=== PATIENT | male | born 1995 | race American Indian/Alaskan Native ===

== ENCOUNTER 2021-01-31 10:52 | Emergency (ER) | payer BC ==
--- NOTE | 2021-01-31 11:44 | Emergency Department Report ---
<MARY DOWNS - Last Filed: 01/31/21 16:28> ED General Adult HPI - General Chief complaint: Extremity Problem,Nontraumatic Stated complaint: SWELLING TO LT LEG Time Seen by Provider: 01/31/21 11:41 Source: patient Mode of arrival: Ambulatory Limitations: No Limitations - History of Present Illness Initial comments: 25-year-old -[place] male patient presents with complaints of left knee pain and swelling x2 days. He denies any recent injuries, but states 3 weeks ago he did fall on his knees causing abrasions that are still healing. Patient denies any difficulty moving his leg, fever/chills/sweats, loss of sensation in his leg, or weakness. He reports the pain occurs only with ambulation and weightbearing and states it is mild and rates it as a 5/10 in severity. Patient has history of type 1 diabetes and states he compliant with his insulin. Patient also denies any dysuria/hematuria/urinary frequency, penile discharge/scrotal swelling/pain - Related Data Previous Rx's Medication Instructions Recorded Last Taken Type Doxycycline Monohydrate 100 mg PO BID 14 Days #28 capsule 01/31/21 Unknown Rx [Doxycycline Monohydrate CAP] Naproxen 500 mg PO BID #20 tablet 01/31/21 Unknown Rx Allergies Allergy/AdvReac Type Severity Reaction Status Date / Time No Known Allergies Allergy Unverified 01/31/21 16:58 ED Review of Systems Constitutional: denies: chills, diaphoresis, fever, malaise, weakness Gastrointestinal: denies: abdominal pain Musculoskeletal: joint swelling, arthralgia Skin: as per HPI, change in color Neurological: denies: numbness, paresthesias ED Past Medical Hx - Past Medical History Previous Medical History?: Yes Hx Diabetes: Yes (insulin dependent) - Surgical History Past Surgical History?: No - Social History Smoking Status: Never Smoker Substance Use Type: Marijuana - Medications Home Medications: Home Medications Medication Instructions Recorded Confirmed Last Taken Type Doxycycline Monohydrate 100 mg PO BID 14 Days #28 capsule 01/31/21 Unknown Rx [Doxycycline Monohydrate CAP] Naproxen 500 mg PO BID #20 tablet 01/31/21 Unknown Rx ED Physical Exam - General Limitations: No Limitations General appearance: alert, in no apparent distress - Head Head exam: Present: atraumatic, normocephalic - Eye Eye exam: Present: normal appearance. Absent: scleral icterus - Respiratory Respiratory exam: Present: normal lung sounds bilaterally. Absent: respiratory distress - Cardiovascular Cardiovascular Exam: Present: regular rate, normal rhythm - Expanded Lower Extremity Exam Left Knee exam: Present: full ROM, swelling (Moderate), erythema (With warmth touch of the knee noted), full knee extension. Absent: tenderness, deformity Gait: Positive: antalgic - Neurological Exam Neurological exam: Present: alert, oriented X3 - Psychiatric Psychiatric exam: Present: normal affect, normal mood - Skin Skin exam: Present: warm, dry, intact, abrasion (Noted bilaterally to anterior lower knees) ED Medical Decision Making - Lab Data Result diagrams: 01/31/21 13:02 01/31/21 13:02 Lab Results 01/31/21 01/31/21 Range/Units 13:02 13:02 WBC 12.3 H (4.5-11.0) K/mm3 RBC 4.65 (3.65-5.03) M/mm3 Hgb 14.3 (11.8-15.2) gm/dl Hct 43.1 (35.5-45.6) % MCV 93 (84-94) fl MCH 31 (28-32) pg MCHC 33 (32-34) % RDW 12.2 L (13.2-15.2) % Plt Count 210 (140-440) K/mm3 Lymph % (Auto) 24.1 (13.4-35.0) % Cuming % (Auto) 11.1 H (0.0-7.3) % Eos % (Auto) 0.2 (0.0-4.3) % Baso % (Auto) 0.3 (0.0-1.8) % Lymph # (Auto) 3.0 (1.2-5.4) K/mm3 Cuming # (Auto) 1.4 H (0.0-0.8) K/mm3 Eos # (Auto) 0.0 (0.0-0.4) K/mm3 Baso # (Auto) 0.0 (0.0-0.1) K/mm3 Seg Neutrophils % 64.3 (40.0-70.0) % Seg Neutrophils # 8.0 H (1.8-7.7) K/mm3 ESR 42 (0-20) mm/Hr Sodium 139 (137-145) mmol/L Potassium 4.9 (3.6-5.0) mmol/L Chloride 101.2 (98-107) mmol/L Carbon Dioxide 28 (22-30) mmol/L Anion Gap 15 mmol/L BUN 9 (9-20) mg/dL Creatinine 0.7 L (0.8-1.3) mg/dL Estimated GFR > 60 ml/min BUN/Creatinine Ratio 13 % Glucose 230 H (75-100) mg/dL Calcium 9.3 (8.4-10.2) mg/dL Total Bilirubin 0.60 (0.1-1.2) mg/dL AST 13 (5-40) units/L ALT 9 (7-56) units/L Alkaline Phosphatase 95 (35-129) units/L Total Creatine Kinase 112 (55-170) units/L Total Protein 7.7 (6.3-8.2) g/dL Albumin 3.8 L (3.9-5) g/dL Albumin/Globulin Ratio 1.0 % - Radiology Data Radiology results: report reviewed LEFT KNEE 3 VIEWS INDICATION / CLINICAL INFORMATION: Left knee pain, swelling and warmth/redness without known injury. COMPARISON: None available. FINDINGS: BONES / JOINT(S): There is a moderate suprapatellar joint effusion. No significant arthritis. There is no evidence of fracture, subluxation or destructive lesion. SOFT TISSUES: No significant abnormality. ADDITIONAL FINDINGS: None. IMPRESSION: Moderate left knee joint effusion without osseous abnormality. - Medical Decision Making 25-year-old -[place] male patient presents with complaints of left knee pain and swelling x2 days. He denies any recent injuries, but states 3 weeks ago he did fall on his knees causing abrasions that are still healing. Patient denies any difficulty moving his leg, fever/chills/sweats, loss of sensation in his leg, or weakness. He reports the pain occurs only with ambulation and weightbearing and states it is mild and rates it as a 5/10 in severity. Patient has history of type 1 diabetes and states he compliant with his insulin. Patient also denies any dysuria/hematuria/urinary frequency, penile discharge/scrotal swelling/pain Repeat heart rate noted to be 92 bpm. Repeat temp 98.9 X-ray shows moderate joint effusion. CBC shows white count of 12.3. Given patient is type I diabetic with a possible inoculation site, joint aspiration was attempted by Dr. Hoover. No fluid was obtained from aspiration. Discussed patient in detail with Dr. Hoover. We will treat for cellulitis with doxycycline. Patient given 1 g of Rocephin here in ED. Patient informed to follow-up with orthopedics within 2 to 3 days for further evaluation. At this time patient is well-appearing and stable for discharge home. Patient is able to ambulate and has no limitations on range of motion of the left knee on exam. Discussed in great detail signs and symptoms that should prompt immediate return to the emergency department in detail with patient who verbalized understanding. Critical Care Time: Yes Critical care time in (mins) excluding proc time.: 35 (Knee aspiration procedure and counseling) ED Disposition Clinical Impression: Cellulitis, Swelling of left knee joint Disposition: - TO HOME OR SELFCARE Is pt being admited?: No Condition: Stable Instructions: Cellulitis, Adult, Knee Effusion Prescriptions: Doxycycline Monohydrate [Doxycycline Monohydrate CAP] 100 mg PO BID 14 Days #28 capsule Naproxen 500 mg PO BID #20 tablet Referrals: [facility] [Provider Group] - 2-3 Days JOSE MARIA DAUGHERTY MD [Staff Physician] - 2-3 Days <MICHELLE HOOVER S - Last Filed: 01/31/21 18:24> ED Review of Systems ROS: Stated complaint: SWELLING TO LT LEG Other details as noted in HPI ED Course Vital Signs 01/31/21 11:11 Temperature 99.6 F Pulse Rate 109 H Respiratory 15 Rate Blood Pressure 127/81 O2 Sat by Pulse 98 Oximetry ED Medical Decision Making - Lab Data Result diagrams: 01/31/21 13:02 01/31/21 13:02 - Medical Decision Making I saw this patient in conjunction with IVON Downs. Patient has a 2-day history of left knee pain and swelling with the pain going down the left lower extremity. On examination there is some warmth and mild erythema to the anterior knee and distally through the mid tib-fib. He is neurovascularly intact. Patient does not have any significant tenderness to palpation but says that he gets increased pain with range of motion. The patient does not appear to have any significant restriction to range of motion. Patient is afebrile. No significant leukocytosis. He has some mild tachycardia with a heart rate of about 109 bpm. X-ray shows a moderate joint effusion but no fracture, dislocation, foreign body. Given the fact that the patient had a recent fall with some healing abrasions, the fact that he is diabetic, and there is joint swelling, I attempted to do an arthrocentesis to test the synovial fluid. The patient gave written permission for this procedure. Risks and benefits were discussed and the patient has decided to proceed. This was done under sterile conditions. Betadine was used to clean the circumferential knee. About 8 cc of 1% lidocaine without epinephrine were placed to the medial portion of the left knee with good results for anesthesia. I made 3 attempts to obtain the synovial fluid without success. There was less than 1 cc of blood loss. The patient looks like he has a cellulitis of the anterior knee and proximal left lower leg. The patient is afebrile and does not have any significant leuko cytosis. There is no restriction to range of motion. I spoke to the orthopedist on-call, Dr. Daugherty, who agrees that the patient is safe for discharge with outpatient follow-up. He agrees with the plan for antibiotics and has recommended anti-inflammatories to be given. I had a long discussion with the patient regarding signs/symptoms of infection for which she would require immediate return to the closest emergency department. Otherwise he will follow up with the orthopedist. Critical care attestation.: If time is entered above; I have spent that time in minutes in the direct care of this critically ill patient, excluding procedure time. ED Disposition Is pt being admited?: No
--- NOTE | 2021-01-31 12:37 | XRay Report ---
LEFT KNEE 3 VIEWS INDICATION / CLINICAL INFORMATION: Left knee pain, swelling and warmth/redness without known injury. COMPARISON: None available. FINDINGS: BONES / JOINT(S): There is a moderate suprapatellar joint effusion. No significant arthritis. There i s no evidence of fracture, subluxation or destructive lesion. SOFT TISSUES: No significant abnormality. ADDITIONAL FINDINGS: None. IMPRESSION: Moderate left knee joint effusion without osseous abnormality. Signer Name: Noe Dejesus MD Signed: 01/31/2021 12:32 PM Workstation Name: [id number]
[2021-01-31 14:16] LABS: Alanine Aminotransferase 9 units/L (7-56); Albumin 3.8 g/dL (3.9-5); Blood Urea Nitrogen 9 mg/dL (9-20); Calcium 9.3 mg/dL (8.4-10.2); Hemolysis Index 18
[2021-01-31 14:41] LABS: BUN/Creatinine Ratio 13
[2021-01-31 15:06] LABS: Erythrocyte Sedimentation Rate 42 mm/Hr (0-20)
[2021-01-31 15:15] LABS: Basophils % (Auto) 0.3 % (0.0-1.8); Eosinophils % (Auto) 0.2 % (0.0-4.3); Hematocrit 43.1 % (35.5-45.6); Hemoglobin 14.3 gm/dl (11.8-15.2); Lymphocytes % (Auto) 24.1 % (13.4-35.0); Mean Corpuscular HGB Conc 33 % (32-34); Mean Corpuscular Volume 93 fl (84-94); Monocytes # (Auto) 1.4 K/mm3 (0.0-0.8); Monocytes % (Auto) 11.1 % (0.0-7.3); Platelet Count 210 K/mm3 (140-440); Red Blood Count 4.65 M/mm3 (3.65-5.03); Red Cell Distribution Width 12.2 % (13.2-15.2)
[2021-01-31] MEDS ORDERED: LIDOCAINE (1%) 10 MG/1 ML VIAL 20 ML MDV INFILTRATI ONE (16:53)
[2021-01-31] MEDS ORDERED: LIDOCAINE-MPF (1%) 10 MG/1 ML VIAL 5 ML INFILTRATI ONE ×2 (16:57→17:31)
[2021-01-31] MEDS ORDERED: LIDOCAINE (2%) 20 MG/1 ML VIAL 20 ML MDV INFILTRATI ONE (16:59)
[2021-01-31] MEDS ORDERED: IBUPROFEN 800 MG TAB PO STA (17:36)
[2021-01-31 18:58] VITALS: BP 134/79
== END 2021-01-31 18:56 | disposition home or self-care (01) ==
LOC: ED 10:52
DX: L03.90 Cellulitis, unspecified (principal); M25.462 Effusion, left knee; F12.90 Cannabis use, unspecified, uncomplicated; E11.9 Type 2 diabetes mellitus without complications; Z79.899 Other long term (current) drug therapy
CPT/HCPCS: 36415; 73562; 80053; 82550; 85025; 85652; 96372; 99284; J0696

== ENCOUNTER 2022-02-18 09:59 | Emergency (ER) | payer SELFPAY ==
[2022-02-18] MEDS ORDERED: SODIUM CHLORIDE 0.9% 1000 ML 1,000 ML IV ONE (11:24)
[2022-02-18 12:58] LABS: Alanine Aminotransferase 38 units/L (7-56); Albumin 4.1 g/dL (3.9-5); BUN/Creatinine Ratio 14; Blood Urea Nitrogen 10 mg/dL (9-20); Hemolysis Index 25
[2022-02-18 13:23] LABS: Basophils % (Auto) 0.4 % (0.0-1.8); Eosinophils % (Auto) 0.2 % (0.0-4.3); Hematocrit 40.9 % (35.5-45.6); Hemoglobin 13.4 gm/dl (11.8-15.2); Lymphocytes # (Auto) 2.3 K/mm3 (1.2-5.4); Lymphocytes % (Auto) 31.6 % (13.4-35.0); Mean Corpuscular HGB Conc 33 % (32-34); Mean Corpuscular Volume 93 fl (84-94); Monocytes # (Auto) 0.4 K/mm3 (0.0-0.8); Monocytes % (Auto) 5.9 % (0.0-7.3); Platelet Count 207 K/mm3 (140-440)
--- NOTE | 2022-02-18 13:34 | Emergency Department Report ---
ED General Adult HPI - General Chief complaint: Hyperglycemia Stated complaint: HYPERGLYCEMIA PUI?: No Time Seen by Provider: 02/18/22 11:12 Source: patient, EMS Mode of arrival: Stretcher Limitations: No Limitations - History of Present Illness Initial comments: pt here with hyperglycemia, nauseated , on insulin , thinks it didn;t work today -: hour(s) Radiation: non-radiation Severity scale (0 -10): 0 Associated Symptoms: nausea/vomiting. denies: denies other symptoms, confusion, chest pain, cough, diaphoresis - Related Data Previous Rx's Medication Instructions Recorded Last Taken Type Doxycycline Monohydrate 100 mg PO BID 14 Days #28 capsule 01/31/21 Unknown Rx [Doxycycline Monohydrate CAP] Naproxen 500 mg PO BID #20 tablet 01/31/21 Unknown Rx Allergies Allergy/AdvReac Type Severity Reaction Status Date / Time No Known Allergies Allergy Verified 02/18/22 10:06 ED Review of Systems ROS: Stated complaint: HYPERGLYCEMIA Other details as noted in HPI Constitutional: denies: chills, fever Eyes: denies: eye pain, eye discharge, vision change ENT: denies: ear pain, throat pain Respiratory: denies: cough, shortness of breath, wheezing Cardiovascular: denies: chest pain, palpitations Endocrine: no symptoms reported Gastrointestinal: denies: abdominal pain, nausea, diarrhea Genitourinary: denies: urgency, dysuria Musculoskeletal: denies: back pain, joint swelling, arthralgia Skin: denies: rash, lesions Neurological: denies: headache, weakness, paresthesias Psychiatric: denies: anxiety, depression Hematological/Lymphatic: denies: easy bleeding, easy bruising ED Past Medical Hx - Past Medical History Previous Medical History?: Yes Hx Diabetes: Yes (insulin dependent) - Social History Smoking Status: Never Smoker Substance Use Type: Marijuana - Medications Home Medications: Home Medications Medication Instructions Recorded Confirmed Last Taken Type Doxycycline Monohydrate 100 mg PO BID 14 Days #28 capsule 01/31/21 Unknown Rx [Doxycycline Monohydrate CAP] Naproxen 500 mg PO BID #20 tablet 01/31/21 Unknown Rx ED Physical Exam - General Limitations: No Limitations General appearance: alert, in no apparent distress - Head Head exam: Present: atraumatic, normocephalic - Eye Eye exam: Present: normal appearance - ENT ENT exam: Present: mucous membranes moist - Neck Neck exam: Present: normal inspection - Respiratory Respiratory exam: Present: normal lung sounds bilaterally. Absent: respiratory distress - Cardiovascular Cardiovascular Exam: Present: regular rate, normal rhythm. Absent: systolic murmur, diastolic murmur, rubs, gallop - GI/Abdominal GI/Abdominal exam: Present: soft, normal bowel sounds - Rectal Rectal exam: Present: deferred - Extremities Exam Extremities exam: Present: normal inspection - Back Exam Back exam: Present: normal inspection - Neurological Exam Neurological exam: Present: alert, oriented X3 - Psychiatric Psychiatric exam: Present: normal affect, normal mood - Skin Skin exam: Present: warm, dry, intact, normal color. Absent: rash ED Course Vital Signs 02/18/22 10:03 Temperature 98.0 F Pulse Rate 88 Respiratory 14 Rate Blood Pressure 108/77 [Left] O2 Sat by Pulse 98 Oximetry ED Medical Decision Making - Lab Data Result diagrams: 02/18/22 12:00 02/18/22 12:00 - Medical Decision Making hyperglycemia without ketosis or gap , fluids given Critical care attestation.: If time is entered above; I have spent that time in minutes in the direct care of this critically ill patient, excluding procedure time. ED Disposition Clinical Impression: Hyperglycemia Disposition: 01 HOME / SELF CARE / HOMELESS Is pt being admited?: No Does the pt Need Aspirin: No Condition: Stable Instructions: Hyperglycemia, [id number] Referrals: NIKKI HUTTON MD [Primary Care Provider] - 3-5 Days
[2022-02-18 14:05] VITALS: BP 110/80
== END 2022-02-18 14:07 | disposition home or self-care (01) ==
LOC: ED 09:59
DX: E11.65 Type 2 diabetes mellitus with hyperglycemia (principal); F12.90 Cannabis use, unspecified, uncomplicated; Z79.899 Other long term (current) drug therapy
CPT/HCPCS: 36415; 80053; 82010; 82962; 83690; 84484; 85025; 96360; 99284; J7030